=== PATIENT | female | born 1940 | race Caucasian/White ===

== ENCOUNTER 2022-02-25 17:29 | Inpatient (IN) ==
[2022-02-25] MEDS ORDERED: *HR* Labetalol 20 MG/4 ML SYRINGE IVP STA (19:19)
[2022-02-25 19:47] LABS: Basophils % 0.1 %; Eosinophils % 0.2 %; Hematocrit 48.5 % (35.3-44.9); Hemoglobin 16.2 g/dL (11.5-15.4); Immature Granulocytes % 0.6 % (0-4); Lymphocytes # 1.2 K/mcL (0.6-4.6); Lymphocytes % 13.6 %; Mean Corpuscular HGB Conc 33.4 g/dL (31.6-35.5); Mean Corpuscular Volume 89.8 fL (83.0-100.0); Mean Platelet Volume 10.2 fL (9.4-12.4); Monocytes # 0.9 K/mcL (0.0-1.3); Monocytes % 10.4 %; Neutrophils # 6.6 K/mcL (1.6-8.9); Platelet Count 271 K/mcL (140-400); Red Cell Distribution Width 12.4 % (11.5-14.5); Segmented Neutrophils % 75.1 %; White Blood Count 8.8 K/mcL (4.3-11.1)
[2022-02-25 19:56] LABS: Prothrombin Time 11.6 Seconds (9.4-12.1)
[2022-02-25 19:59] LABS: Activated Partial Thrombo Time 29.1 Seconds (26.0-36.0)
[2022-02-25 20:09] LABS: Alanine Aminotransferase 83 Units/L (7-52); Albumin 4.6 g/dL (3.5-5.7); Albumin/Globulin Ratio 2.2 (1.1-2.2); Alkaline Phosphatase 100 Units/L (34-104); Aspartate Amino Transferase 45 Units/L (13-39); BUN/Creatinine Ratio 19 (6-26); Bilirubin,Direct 0.1 mg/dL (0.0-0.2); Bilirubin,Indirect 0.5 mg/dL (0.0-1.0); Bilirubin,Total 0.6 mg/dL (0.3-1.0); Blood Urea Nitrogen 21 mg/dL (8-23); Calcium 10.7 mg/dL (8.6-10.3); Carbon Dioxide 25 mEq/L (23-29); Chloride 105 mEq/L (98-107); Ethanol < 10 mg/dL (Less than 10); Globulin 2.1 g/dL (2.4-3.5); Glucose 121 mg/dL (70-105); Osmolality,Calculated 290 (280-300); Sodium 138 mEq/L (136-145); Total Protein 6.7 g/dL (6.4-8.9); Troponin I < 0.03 ng/mL (< 0.04)
[2022-02-25 21:02] LABS: Bacteria,Urine Few per hpf (None-Few); Bilirubin,Urine Negative (Negative); Blood,Urine Negative (Negative); Clarity,Urine Turbid (Clear); Color,Urine Yellow (Yellow); Glucose,Urine (UA) Normal (Normal); Hyaline Casts,Urine Few per lpf (None Seen); Ketones,Urine 10 mg/dL (Negative); Leukocyte Esterase,Urine Large (Negative); Mucus,Urine Few per lpf (None-Few); Nitrite,Urine Positive (Negative); PH,Urine 6.5 pH Units (5.0-8.0); Protein,Urine Trace mg/dL (Neg-Trace); Specific Gravity,Urine 1.015 (1.010-1.025); Squamous Epithelial Cell,Urine Few per hpf (None-Few); Urobilinogen,Urine Normal (Normal); WBC,Urine TNTC per hpf (0-3)
[2022-02-25 21:05] LABS: Amphetamine Screen,Urine Negative ng/mL (Cutoff=1000); Barbiturate Screen,Urine Negative ng/mL (Cutoff=200); Benzodiazepines Screen,Urine Negative ng/mL (Cutoff=200); Cannabinoid Screen,Urine Negative ng/mL (Cutoff = 50); Cocaine Screen,Urine Negative ng/mL (Cutoff= 300); Opiate Screen,Urine Negative ng/mL (Cutoff=300); Phencyclidine Screen,Urine Negative ng/mL (Cutoff=25)
[2022-02-25] MEDS ORDERED: cefTRIAXone 1,000 MG in Water for inj. (sterile) 10 ML IVP ONE (21:06)
[2022-02-25] MEDS ORDERED: Ondansetron ODT 4 MG TAB.RAPDIS SL PRN (21:52)
[2022-02-25] MEDS ORDERED: Naloxone 0.4 MG/ML INJ IVP PRN (21:52)
[2022-02-25] MEDS ORDERED: Melatonin 3 MG TABLET PO PRN (21:52)
[2022-02-25 22:35] LABS: Influenza A PCR Negative (Negative); Influenza B PCR Negative (Negative); Resp. Syncytial Virus PCR Negative (Negative)
[2022-02-25 22:37] LABS: SARS-CoV-2 by PCR (In House) Positive (Negative)
[2022-02-26] MEDS ORDERED: hydrOXYzine pamoate 25 MG CAPSULE PO PRN (00:51)
[2022-02-26] MEDS: traZODone 50 MG TABLET PO PRN (01:10)
[2022-02-26] MEDS ORDERED: *HR* Heparin 5,000 UNIT/ML VIAL SQ SCH (06:00)
[2022-02-26 08:38] LABS: Hematocrit 47.5 % (35.3-44.9); Hemoglobin 16.2 g/dL (11.5-15.4); Mean Corpuscular HGB Conc 34.1 g/dL (31.6-35.5); Mean Platelet Volume 9.6 fL (9.4-12.4); Platelet Count 265 K/mcL (140-400); Red Cell Distribution Width 12.6 % (11.5-14.5); White Blood Count 8.4 K/mcL (4.3-11.1)
[2022-02-26] MEDS: cefTRIAXone 1,000 MG in 0.9 % Sodium Chloride Mini Bag 100 ML IVPB SCH (08:48)
[2022-02-26] MEDS: amLODIPine 5 MG TABLET PO SCH (08:48)
[2022-02-26 08:57] LABS: Calcium 10.1 mg/dL (8.6-10.3); Magnesium 2.4 mg/dL (1.6-2.6); Phosphorous 2.9 mg/dL (2.7-4.5); Potassium 3.6 mEq/L (3.5-5.1)
[2022-02-26 09:48] LABS: Thyroid Stimulating Hormone 2.344 mcIU/mL (0.340-5.600)
[2022-02-26] MEDS: *HR* Heparin 5,000 UNIT/ML VIAL SQ SCH ×2 (15:19→22:02)
[2022-02-26] MEDS: Melatonin 3 MG TABLET PO SCH (19:54)
[2022-02-26] MEDS: Lithium Carbonate ER 450 MG TABLET.ER PO SCH (19:54)
[2022-02-26] MEDS: Haloperidol Lactate 5 MG/ML VIAL IVP PRN (20:28)
[2022-02-27 04:12] LABS: Basophils % 0.3 %; Eosinophils # 0.1 K/mcL (0.0-0.6); Eosinophils % 0.9 %; Hematocrit 47.3 % (35.3-44.9); Hemoglobin 15.7 g/dL (11.5-15.4); Immature Granulocytes % 0.4 % (0-4); Lymphocytes # 1.3 K/mcL (0.6-4.6); Lymphocytes % 14.6 %; Mean Corpuscular HGB Conc 33.2 g/dL (31.6-35.5); Mean Corpuscular Hemoglobin 29.5 pg (28.0-33.3); Mean Corpuscular Volume 88.9 fL (83.0-100.0); Mean Platelet Volume 10.2 fL (9.4-12.4); Monocytes # 0.9 K/mcL (0.0-1.3); Monocytes % 10.2 %; Neutrophils # 6.7 K/mcL (1.6-8.9); Platelet Count 288 K/mcL (140-400); Red Blood Count 5.32 M/mcL (3.82-4.97); Red Cell Distribution Width 12.9 % (11.5-14.5); Segmented Neutrophils % 73.6 %
[2022-02-27 04:18] LABS: Calcium 9.9 mg/dL (8.6-10.3); Magnesium 2.2 mg/dL (1.6-2.6); Potassium 3.8 mEq/L (3.5-5.1)
[2022-02-27] MEDS: *HR* Heparin 5,000 UNIT/ML VIAL SQ SCH ×3 (04:19→20:35)
[2022-02-27] MEDS: amLODIPine 5 MG TABLET PO SCH (10:11)
[2022-02-27] MEDS: cefTRIAXone 1,000 MG in 0.9 % Sodium Chloride Mini Bag 100 ML IVPB SCH (10:16)
[2022-02-27] MEDS: Lithium Carbonate ER 450 MG TABLET.ER PO SCH (20:35)
[2022-02-27] MEDS: traZODone 50 MG TABLET PO PRN (20:35)
[2022-02-27] MEDS: Melatonin 3 MG TABLET PO SCH (20:35)
[2022-02-28] MEDS: Haloperidol Lactate 5 MG/ML VIAL IVP PRN (01:37)
[2022-02-28] MEDS: *HR* Heparin 5,000 UNIT/ML VIAL SQ SCH (05:35)
[2022-02-28] MEDS: amLODIPine 5 MG TABLET PO SCH (08:29)
[2022-02-28] MEDS: Multivit/Ca/Min/Fe/FA 1 TAB TABLET PO SCH (08:29)
[2022-02-28] MEDS: cefTRIAXone 1,000 MG in 0.9 % Sodium Chloride Mini Bag 100 ML IVPB SCH (08:36)
[2022-02-28] MEDS ORDERED: Haloperidol Lactate 5 MG/ML VIAL IM PRN (11:50)
[2022-02-28] MEDS: Melatonin 3 MG TABLET PO SCH (21:11)
[2022-02-28] MEDS: Lithium Carbonate ER 450 MG TABLET.ER PO SCH (21:11)
[2022-02-28] MEDS: Cefdinir 300 MG CAPSULE PO SCH (21:11)
[2022-02-28] MEDS: traZODone 50 MG TABLET PO PRN (21:12)
[2022-03-01 04:28] LABS: Hematocrit 42.6 % (35.3-44.9); Mean Corpuscular HGB Conc 32.9 g/dL (31.6-35.5); Mean Corpuscular Hemoglobin 29.7 pg (28.0-33.3); Mean Corpuscular Volume 90.4 fL (83.0-100.0); Mean Platelet Volume 10.3 fL (9.4-12.4); Platelet Count 248 K/mcL (140-400); Red Blood Count 4.71 M/mcL (3.82-4.97); Red Cell Distribution Width 12.6 % (11.5-14.5); White Blood Count 9.6 K/mcL (4.3-11.1)
[2022-03-01] MEDS: *HR* Enoxaparin 40 MG/0.4 ML SYRINGE SQ SCH (06:22)
[2022-03-01] MEDS: Cefdinir 300 MG CAPSULE PO SCH ×2 (09:16→20:33)
[2022-03-01] MEDS: amLODIPine 5 MG TABLET PO SCH (09:16)
[2022-03-01] MEDS: Multivit/Ca/Min/Fe/FA 1 TAB TABLET PO SCH (09:16)
[2022-03-01 09:54] LABS: Calcium 9.6 mg/dL (8.6-10.3); Magnesium 2.3 mg/dL (1.6-2.6)
[2022-03-01] MEDS: Lithium Carbonate ER 450 MG TABLET.ER PO SCH (20:33)
[2022-03-01] MEDS: traZODone 50 MG TABLET PO PRN (20:33)
[2022-03-01] MEDS: Melatonin 3 MG TABLET PO SCH (20:33)
[2022-03-02 04:41] LABS: Hematocrit 41.4 % (35.3-44.9); Hemoglobin 13.7 g/dL (11.5-15.4); Mean Corpuscular HGB Conc 33.1 g/dL (31.6-35.5); Mean Corpuscular Hemoglobin 29.5 pg (28.0-33.3); Mean Corpuscular Volume 89.2 fL (83.0-100.0); Mean Platelet Volume 10.8 fL (9.4-12.4); Platelet Count 277 K/mcL (140-400); Red Blood Count 4.64 M/mcL (3.82-4.97); Red Cell Distribution Width 12.6 % (11.5-14.5); White Blood Count 9.7 K/mcL (4.3-11.1)
[2022-03-02 04:59] LABS: Calcium 9.6 mg/dL (8.6-10.3); Magnesium 2.3 mg/dL (1.6-2.6); Potassium 3.8 mEq/L (3.5-5.1)
[2022-03-02] MEDS: *HR* Enoxaparin 40 MG/0.4 ML SYRINGE SQ SCH (05:03)
[2022-03-02] MEDS: amLODIPine 5 MG TABLET PO SCH ×2 (08:02→12:12)
[2022-03-02] MEDS: Haloperidol Oral Conc 10 MG/5 ML UDC PO PRN ×2 (08:02→16:55)
[2022-03-02] MEDS: Cefdinir 300 MG CAPSULE PO SCH ×2 (08:02→20:29)
[2022-03-02] MEDS: Multivit/Ca/Min/Fe/FA 1 TAB TABLET PO SCH (08:03)
[2022-03-02] MEDS ORDERED: amLODIPine 5 MG TABLET PO ONE (09:06)
[2022-03-02] MEDS ORDERED: Gadolinium Contrast Agent (WT Based) IV PRN (16:23)
[2022-03-02] MEDS: Melatonin 3 MG TABLET PO SCH (20:29)
[2022-03-02] MEDS: Lithium Carbonate ER 450 MG TABLET.ER PO SCH (20:29)
[2022-03-02] MEDS: traZODone 50 MG TABLET PO PRN (20:31)
[2022-03-03] MEDS: *HR* Enoxaparin 40 MG/0.4 ML SYRINGE SQ SCH (04:56)
[2022-03-03] MEDS: Cefdinir 300 MG CAPSULE PO SCH (08:07)
[2022-03-03] MEDS: Multivit/Ca/Min/Fe/FA 1 TAB TABLET PO SCH (08:07)
[2022-03-03] MEDS: amLODIPine 5 MG TABLET PO SCH (08:08)
[2022-03-03 11:34] VITALS: PULSE 72; TEMP 97.8; O2SAT 97
[2022-03-03 15:04] VITALS: BP 133/66
[2022-03-03] MEDS ORDERED: amLODIPine 5 MG TABLET PO ONE (15:08)
[2022-03-04] MEDS ORDERED: amLODIPine 5 MG TABLET PO SCH (09:00)
== END 2022-03-03 18:48 | disposition other institution (70) | DRG 304 ==
LOC: EMEROOARM 17:29 → 2NENU 17:29 → SUATTDRO 22:15 → 2NENU 23:01
PROVIDERS: ADMIT Internal Medicine; ATTEND Student in an Organized Health Care Education/Training Program